=== PATIENT | female | born 1965 | race Caucasian/White ===

== ENCOUNTER → 2023-03-16 11:05 | Outpatient (REF) | payer OTHER, SELFPAY | LOC: WDC 11:05 | PROVIDERS: ATTENDING PHYSICIAN Obstetrics & Gynecology Gynecology; FAMILY PHYSICIAN Family Medicine | DX: Z12.31 Encounter for screening mammogram for malignant neoplasm of breast (principal) | CPT/HCPCS: 77063; 77067 ==

== ENCOUNTER → 2023-11-01 08:50 | Outpatient (REF) | payer OTHER, SELFPAY | LOC: WDC 08:50 | PROVIDERS: ATTENDING PHYSICIAN Obstetrics & Gynecology Gynecology; FAMILY PHYSICIAN Family Medicine | DX: R92.8 Other abnormal and inconclusive findings on diagnostic imaging of breast (principal) | CPT/HCPCS: 76642 ==

== ENCOUNTER → 2024-07-18 09:08 | Outpatient (REF) | payer OTHER, SELFPAY | LOC: HWRAD 09:08 | PROVIDERS: ATTENDING PHYSICIAN Family Medicine; FAMILY PHYSICIAN Family Medicine | DX: R94.6 Abnormal results of thyroid function studies (principal); R93.5 Abnormal findings on diagnostic imaging of other abdominal regions, including retroperitoneum; K76.0 Fatty (change of) liver, not elsewhere classified | CPT/HCPCS: 76700 ==

== ENCOUNTER 2024-08-21 00:19 | Emergency (ER) | payer OTHER, SELFPAY ==
[2024-08-21] VITALS (7 sets, daily range): BP systolic 126–153; BP diastolic 70–90; BMI 32.9
[2024-08-21 01:07] LABS: Hematocrit 39.9 % (37.0-47.0); Hemoglobin 13.7 g/dL (12.0-16.0); Mean Corp Hgb Conc. 34.3 g/dL (33.0-37.0); Mean Corpuscular Volume 91.3 fL (81.0-99.0); Nucleated Red Blood Cells % 0 %; Platelet Count 247 10^3/uL (130-400); Red Cell Dist. Width 12.8 % (11.5-14.5)
[2024-08-21 01:18] LABS: ALT (SGPT) 19 U/L (0-35); AST (SGOT) 28 U/L (14-36); Albumin 4.3 g/dl (3.5-5.0); Alkaline Phosphatase 127 U/L (38-126); Blood Urea Nitrogen 21 mg/dl (7-17); Calcium 9.2 mg/dl (8.4-10.2); Carbon Dioxide 25 mmol/L (22-30); Chloride 110 mmol/L (98-107); Estimated Creatinine Clearance 70 ml/min; Glucose 99 mg/dl (70-99); Potassium 4.0 mmol/L (3.5-5.1); Sodium 140 mmol/L (135-145); Total Protein 7.4 g/dl (6.3-8.2); eGFR > 60.00
--- NOTE | 2024-08-21 01:30 | EDRN ---
Patient unhooked to use the restroom and back in bed resting comfortably
[2024-08-21] MEDS: NSS 1000 IV (02:29)
--- NOTE | 2024-08-21 02:44 | EDRN ---
Updated patient on her lab results and status on provider, patient resting comfortably at this time with at bedside
[2024-08-21 03:27] LABS: Magnesium 1.9 mg/dl (1.6-2.3)
--- NOTE | 2024-08-21 04:51 | EDRN ---
Corin, PA in updating patient on results and plan
[2024-08-21] MEDS: SYNTHROID 50 MCG PO (05:20)
--- NOTE | 2024-08-21 05:56 | ED.GENMED ---
History of Present Illness
General
Chief Complaint: Heart Rate Problem
Source: patient
Exam Limitations: none
Time Seen by Provider: 08/21/24 02:52
History of Present Illness
History of Present Illness:
Note:
CHIEF COMPLAINT(S)
Palpitations.
HISTORY OF PRESENT ILLNESS
The patient is a 26-year-old female with a history of premature ventricular contractions (PVCs), hypothyroidism, who presents with an increase in palpitations. These episodes have been more frequent and feel faster than usual, characterized by a
sensation similar to a 'fish flopping' in the chest. The patient reports having a long week of outdoor activities including playing golf outside daily for multiple hours and suspects dehydration and electrolyte imbalances might be a contributing
factor. She attempted to self-hydrate prior to arrival but did not find significant relief. The palpitations are intermittent and have been present since arrival, without associated chest pain or dyspnea. The patient denies syncope but describes the
palpitations as causing a 'drop feeling,' which can provoke anxiety. She has a past diagnosis of Hashimotos thyroiditis discovered following surgery, and mentions that PVCs were previously deemed benign by a ground crewman aircraft support. She has had multiple halter
monitor evaluations in the past. Recent efforts to control electrolytes at home have not been effective. The patient denies regular follow-up with a ground crewman aircraft support but she previously followed with one regularly. She feels some improvement in symptoms
after receiving intravenous fluids. There are no reports of shortness of breath or changes related to positional variation.
PHYSICAL EXAM
- Nursing notes reviewed and vital signs reviewed.
General: Patient is well appearing and in no acute distress; non-toxic
Skin: Warm and dry, no rashes or lesions
Head: Normocephalic, atraumatic
Eyes: Sclera non-icteric. EOMs intact.
Cardiac: Regular rate and rhythm, no murmurs
Peripheral Vascular: No lower extremity swelling or edema
Pulm: Normal respiratory effort, no wheezes, rales, or rhonchi
Neuro: CN II-XII intact, no focal neurologic deficits.
Psychiatric: Appropriate mood and affect.
PROBLEM LIST
Acute:
- Increased frequency of PVCs.
- Possible dehydration due to recent strenuous outdoor activity.
PLAN
- Await completion of pending blood work, including thyroid function tests and magnesium levels.
- Repeat electrocardiogram before discharge.
- If laboratory results are normal and the patients condition remains stable, discharge home with instructions to follow up with primary care for possible repeat Holter monitoring.
- Reinforce the importance of hydration and avoiding triggers for palpitations.
- Consider referral back to a ground crewman aircraft support for further evaluation if symptoms persist or worsen.
DIFFERENTIAL DIAGNOSIS
The Differential Diagnosis includes, in no particular order and is not limited to:
1. Premature ventricular contractions (benign idiopathic or related to electrolyte imbalance)
2. Hyperthyroidism or thyroid dysfunction
3. Anxiety-related palpitations
4. Dehydration or electrolyte imbalance
5. Atrial fibrillation
6. Supraventricular tachycardia
7. Mitral valve prolapse
8. Anemia
9. Structural heart disease
10. Medication-induced palpitations
CHART REVIEW
Patient seen on various occasions for similar symptoms, her symptoms were attributed to PVCs at the time
No hospital discharge summaries to review other than for acute appendicitis
MDM DISPOSITION
The patient is a 26-year-old female with a history of premature ventricular contractions (PVCs), hypothyroidism, who presents with an increase in palpitations. She has no associated chest pain or shortness of breath. She reports this feels similar
to when she has had PVCs in the past. On physical exam, she is well appearing, in no acute distress, no murmurs. Her symptoms seemed to improve with some IV fluids. Her blood work is unremarkable with normal TSH and no evidence of electrolyte
abnormalities. Her ECG reveals normal sinus rhythm. Review of cardiac telemetry monitoring reveals occasional PVCs but no dysrhythmia. Blood work was completed prior to my evaluation. I did consider troponin however she has been chest pain free and
has a long history of multiple visits for similar symptoms with unremarkable workup. Patient stable for discharge, had long discussion regarding strict return precautions.
Past History
Past History
ED Past Medical History: Psychiatric (anxiety)
ED Past Surgical History: Appendectomy (09/13/2018)
Social History
Tobacco: Former smoker (Quit 09/13/2018)
Alcohol: Occasional (Very rare alcohol use)
Drug: None
Personal:
Living: with family
Employment: Employed
Family History
Family History: Other (Noncontributory)
Phy Exam
Physical Exam
Physical Exam:
see hpi
Course
Orders/Labs/Results
Orders:
Orders
08/21/24 00:23
Electrocardiogram (*1) Urgent
Reason for Study: Palpitations
EKG- Treatment ONCE
08/21/24 00:54
CBC/With Diff [Complete Blood Count/With Diff] Urgent
Comprehensive Metabolic Panel Urgent
Magnesium Urgent
Comment: ADD ON
TSH Reflex To Free T4 Urgent
Comment: ADDED
08/21/24 02:24
0.9% Sodium Chloride 1000 ml [Nss] 1,000 ml IV BOLUS
08/21/24 02:29
Add On- LAB Urgent
Tests Added?: tsh reflex t4
08/21/24 03:11
Add On- LAB Urgent
Tests Added?: magnesium
08/21/24 03:53
Electrocardiogram (*1) Urgent
Reason for Study: Palpitations
08/21/24 05:15
Levothyroxine [Synthroid] 50 mcg PO NOW STA
Abnormal Lab Results
08/21/24
00:54
MCH 31.4 H pg
(27.0-31.0)
Absolute Lymphs (auto) 3.8 H 10^3/uL
(1.2-3.4)
Absolute Monos (auto) 0.7 H 10^3/uL
(0.1-0.6)
Neutrophils % 37.8 L %
(42.2-75.2)
Chloride 110 H mmol/L
(98-107)
BUN 21 H mg/dl
(7-17)
Alkaline Phosphatase 127 H U/L
(38-126)
08/21/24 00:54
08/21/24 00:54
Vital Signs
Initial and Last Documented VS:
Initial Vital Signs
Temp Pulse Resp BP Pulse Ox
97.5 F 65 16 153/89 99
08/21/24 00:23 08/21/24 00:23 08/21/24 00:23 08/21/24 00:23 08/21/24 00:23
Last Documented Vital Signs
Temp Pulse Resp BP Pulse Ox
97.5 F 55 18 133/76 99
08/21/24 00:23 08/21/24 05:00 08/21/24 05:00 08/21/24 05:00 08/21/24 05:56
*Pulse Oximetry
SaO2: 99
Oxygen Mode of Delivery: Room air
Patient hypoxic: no
*Critical Care Note
Total Time (30-74mins, 75-104mins- exclusive of procedures): Not Applicable
ED Attending Note
-
Portions of this chart may have been created with voice recognition software.� Occasional wrong word or��sound alike� substitutions may have occurred due to the inherent limitations of voice recognition software.
Discharge Plan
Departure
Patient Disposition: Home (Routine Discharge)
Date of Disposition: 08/21/24
Time of Disposition: 05:04
Patient with high blood pressure during this ER visit?: Yes
Condition: Good
Discharge Problem:
Palpitations
Instructions: Palpitations (DC), BLOOD PRESSURE
Prescriptions:
No Action
lorazepam 1 MG tablet
0.5 mg PO AMHS
calcium carbonate [Oyster Shell Calcium 500] 500 MG tablet
500 mg PO DAILY
fluticasone propionate 1 SPRAY spray,suspension
2 spray intranasal DAILYPRN PRN (Reason: allergies)
magnesium 200 MG tablet
200 mg PO DAILY
cyanocobalamin (vitamin B-12) 1,000 MCG capsule
1,000 mcg PO DAILY
famotidine 20 MG tablet
20 mg PO BID Qty: 28 0RF
Rx Instructions:
Take 20 mg twice a day for 14 days
ascorbic acid (vitamin C) [Vitamin C] 500 MG tablet
1,000 mg PO BID Qty: 56 0RF
Rx Instructions:
Take 1,000 mg twice a day for 14 days
aspirin 81 MG tablet,chewable
81 mg PO DAILY Qty: 14 0RF
Rx Instructions:
Take 81 mg daily for 14 days
zinc sulfate 220 MG capsule
220 mg PO DAILY Qty: 14 0RF
Rx Instructions:
Take 220 mg daily for 14 days
cholecalciferol (vitamin D3) 1,000 UNITS tablet
2,000 units PO DAILY Qty: 28 0RF
Rx Instructions:
Take 2,000 units daily for 14 days
melatonin 5 MG tablet
5 mg PO HS Qty: 14 0RF
Rx Instructions:
Take 5 mg daily at bedtime for 14 days
pantoprazole [Protonix] 40 mg tablet,delayed release (DR/EC)
40 mg PO DAILY Qty: 30 0RF
Referrals:
Pedrito Sanchez MD [Active, Cardiology] - Call in 1-3 days for appt
Ryley Rahman MD [Family Provider, Family Practice]
Activity Restrictions/Additional Instructions:
Your CBC and CMP are unremarkable. You received IV fluids. Please follow-up with your ground crewman aircraft support or primary care provider. PLEASE RETURN EMERGENCY DEPARTMENT SHOULD YOU DEVELOP CHEST PAIN, SHORTNESS OF BREATH, FEVERS OR CHILLS, INTRACTABLE
NAUSEA OR VOMITING, OR ANY OTHER SIGNS OR SYMPTOMS WORRISOME TO YOU.
Interventions
Interventions:
*Risk Screen - Suicide Last Done: 08/21/24 00:27
*General Assessment Last Done: 08/21/24 00:53
*Neglect/Abuse Screening Last Done: 08/21/24 00:27
*ED- Fall Risk Assessment Last Done: 08/21/24 00:53
*ED COVID-19 Vaccine History Last Done: 08/21/24 00:53
*Nursing Disposition Last Done: 08/21/24 05:25
ED- Cardiac Assessment Last Done: 08/21/24 01:30
ED- Pulmonary Assessment Last Done: 08/21/24 01:30
Discharge Date and Time
Discharge Date/Time: 08/21/24 05:26
Print Language: SLOVAK
== END 2024-08-21 05:26 | disposition home or self-care (01) ==
LOC: EMR 00:19
PROVIDERS: EMERGENCY PHYSICIAN Emergency Medicine; FAMILY PHYSICIAN Family Medicine
DX: R00.2 Palpitations (principal); I49.3 Ventricular premature depolarization; Z90.49 Acquired absence of other specified parts of digestive tract; Z87.891 Personal history of nicotine dependence; E03.9 Hypothyroidism, unspecified
CPT/HCPCS: 96360; 99284; 80053; 83735; 84443; 85025; 93005

== ENCOUNTER → 2024-11-27 07:23 | Outpatient (REF) | payer OTHER, SELFPAY | LOC: RCS 07:23 | PROVIDERS: ATTENDING PHYSICIAN Internal Medicine Cardiovascular Disease; FAMILY PHYSICIAN Family Medicine | DX: I49.3 Ventricular premature depolarization (principal); R06.09 Other forms of dyspnea | CPT/HCPCS: 93017 ==

== ENCOUNTER → 2024-11-28 09:03 | Outpatient (REF) | payer OTHER, SELFPAY | LOC: RCS 09:03 | PROVIDERS: ATTENDING PHYSICIAN Internal Medicine Cardiovascular Disease; FAMILY PHYSICIAN Family Medicine | DX: I49.3 Ventricular premature depolarization (principal); R06.09 Other forms of dyspnea | CPT/HCPCS: 93306 ==

== ENCOUNTER → 2024-12-07 13:01 | Outpatient (REF) | payer OTHER, SELFPAY | LOC: RCS 13:01 | PROVIDERS: ATTENDING PHYSICIAN Internal Medicine Cardiovascular Disease; FAMILY PHYSICIAN Family Medicine | DX: R94.39 Abnormal result of other cardiovascular function study (principal) | CPT/HCPCS: 93017; 93350 ==

== ENCOUNTER → 2024-12-18 09:20 | Outpatient (REF) | payer SELFPAY | LOC: HWRAD 09:20 | PROVIDERS: ATTENDING PHYSICIAN Internal Medicine Cardiovascular Disease; FAMILY PHYSICIAN Family Medicine | DX: Z13.6 Encounter for screening for cardiovascular disorders (principal); Z82.49 Family history of ischemic heart disease and other diseases of the circulatory system | CPT/HCPCS: 75571 ==